=== PATIENT | female | born 1995 | race Hispanic/Latino ===

== ENCOUNTER 2017-04-14 14:38 | Emergency (ER) | payer OTHER ==
[~2017-04-14] VITALS: Ht 165.1 cm; Wt 70.3 kg
[~2017-04-14 14:38] MED LIST: DOXY10CA PO; IBUP60TA PO; IMPLANON; PERCOCET PO; Trimethoprim/Sulfamethoxazole PO
[2017-04-14 14:39] VITALS: BP 110/65
== END 2017-04-14 15:45 | disposition home or self-care (01) ==
LOC: M ED 15:21
DX: A63.0 Anogenital (venereal) warts (principal)

== ENCOUNTER 2018-04-23 07:49 | Day surgery (SDC) | payer OTHER ==
[2018-04-23] MEDS ORDERED: LIDOCAINE 1% MDV 20ML VIAL SQ (08:00)
[2018-04-23] MEDS ORDERED: fentaNYL 100 MCG/2 ML INJECTION (J3010) As Ordered ×2 (08:37→09:44)
[2018-04-23] MEDS ORDERED: MIDAZOLAM INJ 2 MG/2 ML VIAL (J2250) As Ordered (08:37)
[2018-04-23 08:48] LABS: CONTROL LINE UCG INT CTR LINE PRESENT; URINE PREG TEST NEGATIVE (NEGATIVE)
[2018-04-23] MEDS: LR 1,000 ML IV ×2 (08:59→10:08)
[2018-04-23] MEDS ORDERED: ROCURONIUM BROMIDE 50 MG/5 ML VIAL As Ordered (09:20)
[2018-04-23] MEDS: dexameTHASONE 4 MG/ML 1ML VIAL (J1100) IV (09:41)
[2018-04-23] MEDS ORDERED: LIDOCAINE 2% INJ 100 MG/5 ML SDV (FOR ANES.) As Ordered (09:45)
[2018-04-23] MEDS ORDERED: PROPOFOL 200 MG/20 ML VIAL As Ordered ×3 (09:45)
[2018-04-23] MEDS ORDERED: dexameTHASONE 4 MG/ML 1ML VIAL (J1100) As Ordered (09:46)
[2018-04-23] MEDS ORDERED: ONDANSETRON 4MG/2ML VIAL (J2405) As Ordered (09:46)
[2018-04-23] MEDS ORDERED: LR 1,000 ML IV (10:30)
[2018-04-23] MEDS ORDERED: ONDANSETRON 4MG/2ML VIAL (J2405) IV (10:30)
[2018-04-23] MEDS ORDERED: HYDROMORPHONE HCL 0.5 MG/ 0.5 ML SYRINGE (J1170 PER 1) IV (10:30)
[2018-04-23] MEDS: fentaNYL 100 MCG/2 ML INJECTION (J3010) IV ×2 (10:35→10:45)
[2018-04-23] MEDS: PERCOCET 5MG/325MG TAB PO (10:35)
[2018-04-23] MEDS ORDERED: IBUPROFEN 100 MG/5 ML SUSP UDC DYE FREE As Ordered (11:35)
[2018-04-23] MEDS: IBUPROFEN 100 MG/5 ML SUSP UDC DYE FREE PO (11:38)
== END 2018-04-23 13:00 | disposition home or self-care (01) ==
LOC: M SDC 07:49
DX: J35.1 Hypertrophy of tonsils (principal); R19.6 Halitosis; F90.9 Attention-deficit hyperactivity disorder, unspecified type; Z79.899 Other long term (current) drug therapy
CPT/HCPCS: 42826